=== PATIENT | female | born 1990 | race Caucasian/White ===

== ENCOUNTER 2019-06-13 14:14 | Outpatient (CLI) | payer OTHER | END 2019-06-13 14:15 | disposition home or self-care (01) | LOC: LAB 14:14 | PROVIDERS: ATTEND Obstetrics & Gynecology | DX: Z36.88 Encounter for antenatal screening for fetal macrosomia (principal); O99.89 Other specified diseases and conditions complicating pregnancy, childbirth and the puerperium; E03.9 Hypothyroidism, unspecified | CPT/HCPCS: 36415; 84443 ==

== ENCOUNTER 2019-06-22 14:30 | Outpatient (CLI) | payer OTHER ==
--- NOTE | 2019-06-24 16:02 | Ultrasound Report ---
Reason: SCREENING FOR MACROSOMIA Procedure Date: 06/22/2019 Accession Number: [id number] / [id number] Procedure: US - OB F/U or Repeat CPT Code: Final Report FULL RESULT: EXAM: FOLLOW-UP OBSTETRICAL ULTRASOUND EXAM DATE: 06/22/2019 03:30 PM. CLINICAL HISTORY: macrosomia. COMPARISON: None. TECHNIQUE: Real-time sonographic evaluation of the fetus performed by the white lead grinder. Multiple hotel services sales representative static images were saved for review. DATING: Established EGA 31 weeks 3 days with JORGE A 08/21/2019 based on LMP. EGA 31 weeks 3 days with JORGE A 08/21/2019 based on physician stated. EGA 33 weeks 0 days with JORGE A 08/10/2019 based on the current ultrasound. GENERAL EVALUATION Purcell . Cardiac activity: 143 bpm. movement: Visualized. Presentation: Cephalic. Placenta: Anterior position. Amniotic fluid: Subjectively high ANGELICA 21.6 cm. MVP 6.2 cm. BIOMETRY Bi-Parietal Diameter (BPD): 8.4 cm, 33 weeks 5 days Head Circumference (HC): 30.6 cm, 34 weeks 1 day Abdominal Circumference (AC): 28.8 cm, 32 weeks 6 days Femur Length (FL): 6.0 cm, 31 weeks 1 day Estimated Weight: 1990 g, 74.4 percentile for age. MATERNAL STRUCTURES Cervix measures 3.5 cm by transabdominal technique IMPRESSION: 1. Estimated weight 1990 g, 74.4% percentile. Clinical EDC 08/21/2019. 2. ANEGLICA 21.6 cm. Increased amniotic fluid volume. RADIA
== END 2019-06-22 14:31 | disposition home or self-care (01) ==
LOC: DI 14:30
PROVIDERS: ATTEND Obstetrics & Gynecology
DX: Z36.88 Encounter for antenatal screening for fetal macrosomia (principal)
CPT/HCPCS: 76816

== ENCOUNTER 2019-06-27 08:00 | Outpatient (CLI) | payer OTHER ==
[2019-06-27 17:16] LABS: CREATININE,URINE 23.6 mg/dL; TOTAL PROTEIN,URINE TIMED < 6 mg/dL
== END 2019-06-27 23:59 | disposition home or self-care (01) ==
LOC: LAB.R 08:00
PROVIDERS: ATTEND Obstetrics & Gynecology
DX: O13.3 Gestational [pregnancy-induced] hypertension without significant proteinuria, third trimester (principal)
CPT/HCPCS: 82570; 84156

== ENCOUNTER 2019-07-13 09:32 | Outpatient (CLI) | payer OTHER ==
--- NOTE | 2019-07-15 05:16 | Ultrasound Report ---
Reason: GESTATIONAL DIABETES Procedure Date: 07/13/2019 Accession Number: [id number] / [id number] Procedure: US - OB F/U or Repeat CPT Code: Final Report FULL RESULT: EXAM: FOLLOW-UP OBSTETRICAL ULTRASOUND - LIMITED EXAM DATE: 07/13/2019 10:26 AM. CLINICAL HISTORY: GESTATIONAL DIABETES. COMPARISON: OB F/U OR REPEAT 06/22/2019 3:30 PM. TECHNIQUE: Real-time transabdominal sonographic evaluation of the fetus performed by the social worker delinquency prevention. Multiple agency sales representative static images were saved for review. DATING: Established EGA 34 weeks 3 days with JORGE A 08/21/2019 based on LMP. EGA 35 weeks 2 days with JORGE A 08/15/2019 based on the current ultrasound. GENERAL EVALUATION Purcell . Cardiac activity: 156 bpm. movement: Visualized. Presentation: Cephalic. Placenta: Anterior position. Amniotic fluid: Normal. ANGELICA 20.0 cm. MVP 5.9 cm. BIOMETRY Bi-Parietal Diameter (BPD): 8.9 cm, 36 weeks 0 days Head Circumference (HC): 31.7 cm, 35 weeks 5 days Abdominal Circumference (AC): 32.3 cm, 36 weeks 1 day Femur Length (FL): 6.5 cm, 33 weeks 2 days Estimated Weight: 2269 g, 73.6 percentile for established EGA. ANATOMY Not assessed on limited exam. MATERNAL STRUCTURES Not assessed on limited exam. IMPRESSION: 1. Purcell live intrauterine with gestational age 35 weeks 2 days based on current ultrasound. Expected gestational age is 34 weeks 3 days based on LMP. Established JORGE A is 08/21/2019. 2. Estimated weight is 2269 g, 73.6 percentile. 3. Borderline to mildly increased amniotic fluid volume with ANGELICA of 20 cm, previously 21.6 cm. RADIA
== END 2019-07-13 09:33 | disposition home or self-care (01) ==
LOC: DI 09:32
PROVIDERS: ATTEND Obstetrics & Gynecology
DX: O24.410 Gestational diabetes mellitus in pregnancy, diet controlled (principal); Z3A.35 35 weeks gestation of pregnancy
CPT/HCPCS: 76816

== ENCOUNTER 2019-07-23 07:00 | Outpatient (CLI) | payer OTHER ==
[2019-07-24 21:20] LABS: TRICHOMONAS VAGINALIS DNA NEGATIVE (NEGATIVE)
== END 2019-07-23 23:59 | disposition home or self-care (01) ==
LOC: LAB.R 07:00
PROVIDERS: ATTEND Obstetrics & Gynecology
DX: Z36.85 Encounter for antenatal screening for Streptococcus B (principal)
CPT/HCPCS: 87491; 87591; 87661; 87797

== ENCOUNTER 2019-07-30 11:42 | Outpatient (CLI) | payer OTHER ==
[2019-07-30 12:03] VITALS: BP 133/84
--- NOTE | 2019-08-07 09:42 | PROCEDURE REPORT ---
- HPI Diagnosis/Indication for NST: Gestational Hypertension (Pt also has GDM) Current EDU 08/21/19 Gestation 36 Weeks and 6 Days 1 Para 0 Vital Signs Temperature 36.7 C 07/30/19 11:59 Heart Rate 90 07/30/19 11:59 Respiratory Rate 16 07/30/19 11:59 Blood Pressure 133/84 H 07/30/19 11:59 Temperature 36.7 C 07/30/19 11:59 Heart Rate 90 07/30/19 11:59 Respiratory Rate 16 07/30/19 11:59 Blood Pressure 133/84 H 07/30/19 11:59 O2 Saturation - NST Procedure NST Procedure Start Date 07/30/19 Start Time 11:55 Stop Time 12:20 Vibroacoustic Stimulation Used No Patient States Movement Yes - Results and Plan Findings/Impression: GDM, GHTN Reactive NST. Plan: Continue with twice weekly NST
== END 2019-07-30 12:25 | disposition home or self-care (01) ==
LOC: WFO 11:42 → FBP 11:45 → WFO 12:25
PROVIDERS: ATTEND Obstetrics & Gynecology
DX: O13.3 Gestational [pregnancy-induced] hypertension without significant proteinuria, third trimester (principal); O24.419 Gestational diabetes mellitus in pregnancy, unspecified control; Z3A.36 36 weeks gestation of pregnancy
CPT/HCPCS: 59025

== ENCOUNTER 2019-08-06 10:51 | Outpatient (CLI) | payer OTHER ==
[2019-08-06 11:55] LABS: BASOPHILS # (AUTO) 0.1 10^3/uL (0.0-0.1); BASOPHILS % (AUTO) 0.5 %; HGB - HEMOGLOBIN 13.1 g/dL (12.0-16.0); LYMPHOCYTES % (AUTO) 19.8 %; MEAN CORPUSCULAR HEMOGLOBIN 27.5 pg (27.0-31.0); MEAN CORPUSCULAR HGB CONC 32.8 g/dL (32.0-36.0); MEAN PLATELET VOLUME 10.4 fL (7.9-10.8); MONOCYTES # (AUTO) 0.7 10^3/uL (0.0-1.0); MONOCYTES % (AUTO) 6.9 %; NEUTROPHILS # (AUTO) 7.4 10^3/uL (1.5-6.6); NEUTROPHILS % (AUTO) 72.1 %; PLT - PLATELET COUNT 237 10^3/uL (130-450); RED BLOOD COUNT 4.76 10^6/uL (4.20-5.40); RED CELL DISTRIBUTION WIDTH 14.7 % (12.0-15.0); WHITE BLOOD COUNT 10.2 x10^3/uL (4.8-10.8)
[2019-08-06 12:07] LABS: URIC ACID 4.7 mg/dL (2.6-7.2)
[2019-08-06 12:10] VITALS: BP 133/86
--- NOTE | 2019-08-16 16:22 | PROCEDURE REPORT ---
- HPI Diagnosis/Indication for NST: Gestational Hypertension Current EDU 08/21/19 Gestation 37 Weeks and 6 Days 1 Para 0 Vital Signs Temperature 36.8 C 08/06/19 11:07 Heart Rate 102 H 08/06/19 11:07 Respiratory Rate 18 08/06/19 11:07 Blood Pressure 143/94 H 08/06/19 11:07 O2 Saturation 100 08/06/19 11:07 Temperature 36.8 C 08/06/19 11:07 Heart Rate 102 H 08/06/19 11:07 Respiratory Rate 18 08/06/19 11:07 Blood Pressure 133/86 H 08/06/19 12:09 O2 Saturation 100 08/06/19 11:07 - NST Procedure NST Procedure Start Date 08/06/19 Start Time 10:59 Stop Time 11:30 Vibroacoustic Stimulation Used No Patient States Movement Yes - Results and Plan Findings/Impression: reactive NST Plan: continue NST and Bp monitoring
== END 2019-08-06 12:24 | disposition home or self-care (01) ==
LOC: WFO 10:51 → FBP 10:59 → WFO 12:24
PROVIDERS: ATTEND Obstetrics & Gynecology
DX: O13.3 Gestational [pregnancy-induced] hypertension without significant proteinuria, third trimester (principal); Z3A.37 37 weeks gestation of pregnancy
CPT/HCPCS: 36415; 59025; 83615; 84450; 84550; 85025

== ENCOUNTER 2019-08-13 12:24 | Outpatient (CLI) | payer OTHER ==
[2019-08-13 12:44] VITALS: BP 132/85
--- NOTE | 2019-08-23 11:08 | PROCEDURE REPORT ---
- HPI Diagnosis/Indication for NST: Gestational Hypertension Current EDU 08/21/19 Gestation 38 Weeks and 6 Days 1 Para 0 Vital Signs Temperature 36.8 C 08/13/19 12:38 Heart Rate 87 08/13/19 12:38 Respiratory Rate 16 08/13/19 12:38 Blood Pressure 132/85 H 08/13/19 12:38 Temperature 36.8 C 08/13/19 12:38 Heart Rate 87 08/13/19 12:38 Respiratory Rate 16 08/13/19 12:38 Blood Pressure 132/85 H 08/13/19 12:38 O2 Saturation - NST Procedure NST Procedure Start Date 08/13/19 Start Time 12:38 Stop Time 13:00 Vibroacoustic Stimulation Used No Patient States Movement Yes - Results and Plan Findings/Impression: 38 weeks GHTN reactive NST Plan: induction @ 39 weeks
== END 2019-08-13 13:00 | disposition home or self-care (01) ==
LOC: WFO 12:24 → FBP 12:28 → WFO 13:00
PROVIDERS: ATTEND Obstetrics & Gynecology
DX: O13.3 Gestational [pregnancy-induced] hypertension without significant proteinuria, third trimester (principal); Z3A.38 38 weeks gestation of pregnancy
CPT/HCPCS: 59025

== ENCOUNTER 2019-08-14 16:45 | Inpatient (IN) | payer OTHER ==
[2019-08-14] MEDS ORDERED: LABETALOL 20 MG/4 ML SYRINGE IV PRN (17:48)
[2019-08-14] MEDS ORDERED: SODIUM CHLORIDE FLUSH 0.9% 10 ML SYRINGE IVP PRN (17:48)
[2019-08-14] MEDS ORDERED: OXYTOCIN/SODIUM CHLORIDE 500 ML IV PRN (17:48)
[2019-08-14 18:05] LABS: BASOPHILS % (AUTO) 0.4 %; HGB - HEMOGLOBIN 12.5 g/dL (12.0-16.0); LYMPHOCYTES # (AUTO) 2.2 10^3/uL (1.5-3.5); LYMPHOCYTES % (AUTO) 22.9 %; MEAN CORPUSCULAR HEMOGLOBIN 27.5 pg (27.0-31.0); MEAN CORPUSCULAR HGB CONC 32.7 g/dL (32.0-36.0); MEAN CORPUSCULAR VOLUME 84.1 fL (81.0-99.0); MEAN PLATELET VOLUME 10.8 fL (7.9-10.8); MONOCYTES # (AUTO) 0.7 10^3/uL (0.0-1.0); MONOCYTES % (AUTO) 7.4 %; NEUTROPHILS # (AUTO) 6.7 10^3/uL (1.5-6.6); NEUTROPHILS % (AUTO) 68.5 %; PLT - PLATELET COUNT 236 10^3/uL (130-450); RED BLOOD COUNT 4.54 10^6/uL (4.20-5.40); RED CELL DISTRIBUTION WIDTH 15.1 % (12.0-15.0); WHITE BLOOD COUNT 9.8 x10^3/uL (4.8-10.8)
[2019-08-14] MEDS: miSOPROStoL 100 MCG TABLET BC SCH ×2 (18:11→22:13)
[2019-08-14] MEDS ORDERED: miSOPROStoL 200 MCG TABLET PR PRN (18:30)
[2019-08-14 19:39] LABS: CREATININE,URINE 208.8 mg/dL; PROTEIN/CREATININE RATIO,URINE 0.2 (<=0.2)
--- NOTE | 2019-08-15 00:05 | HISTORY & PHYSICAL EXAMINATION ---
Admit History - Visit Reason Visit Reason: Other - : 1 Parity: 0 Premature: 0 Ectopic: 0 : 0 Care: positive: [facility] Complications This : positive: None, Gestational diabetes, Other (Chronic hypertension) Smoking Status: Never smoker - Mother's Labs Mother's Blood Type: positive: A Mother's RH: positive: Positive GBS: positive: Group B Step Negative Rubella Status: positive: Immune Meds/Allgy - Allergies Allergies/Adverse Reactions: Allergies Allergy/AdvReac Type Severity Reaction Status Date / Time No Known Drug Allergies Allergy Verified 08/14/19 17:01 Review of Systems - Constitutional Constitutional: denies: Fatigue, Fever, Chills, Diaphoresis - Eyes Eyes: denies: Pain, Blurred vision, Spots in vision, Vision loss - Ears, Nose & Throat Ears, Nose & Throat: denies: Ear pain, Tinnitus, Nasal obstruction, Nasal congestion, Sore throat - Cardiovascular Cariovascular: denies: Irregular heart rate, Chest pain, Lightheadedness, Syncope - Respiratory Respiratory: denies: Cough, Wheezing, SOB at rest, SOB with exertion - Gastrointestinal Gastrointestinal: denies: Abdominal pain, Constipation, Nausea, Vomiting - Genitourinary Genitourinary: denies: Dysuria, Frequency, Urgency - Musculoskeletal Musculoskeletal: denies: Muscle pain - Integumentary Integumentary: denies: Rash, Pruritis - Neurological Neurological: denies: General weakness, Numbness - Psychiatric Psychiatric: denies: Depression, Anxiety - Hematologic/Lymphatic Hematologic/Lymphatic: denies: Anemia, Bruising - All Other Systems All Other Systems: denies: Reviewed and negative Physical - Abdominal Exam Contraction Frequency (min/apart): 6-8 Contraction Intensity: positive: Mild Uterine Resting Tone: positive: Soft - Monitoring Heart Rate Baseline: 135 Strip Review: positive: Category I - Presentation Presentation: positive: Vertex (Vertex confirmed by BSUS) - Vaginal Exam Membranes: positive: Membranes intact - Other Notes Labor Progress Note/Additional Text: Jillian is a 27year old who presents at 39.0wks gestation. She received adequate care at the [facility] before transferring to [facility]. was complicated by diet controlled GDM and chronic hypertension that was controlled without medications in . Admitted to Observation status for pre-induction cervical ripening. Dating: EDC 08/21/2019 by LMP and confirmed by 19.6wk ultrasound OB Hx G1: Current Medications: Aspirin 81mg QD PNV Levothyroxine 125mcg PO Allergies: NKDA Medical History: Anemia Hypothyroidism Hypertension Surgical History: Flexor tendon repair 2017 Family History: Not applicable Social History: Never smoker, no ETOH Labs: A pos GBS Neg Rubella immune Glucola; 156, three hour was 180/152/142 Immunizations: Tdap Physical Exam: as above Assessment: Pt is a 28yo who was admitted to OBS 08/14/2019 at 39.0wks gestation for a pre-labor cervical ripening. complicated by hypertension and gestational diabets. Protein/Createnine ratio 0.2 on admit, other PIH panel also wnl Cat I FHT Cervical ripening indicated Plan: Admit to OBS (until AROM/SROM, active labor, pitocin, or epidural) Continuous monitoring May have epidural when desired (Nitrous gas not being utilized at this time r/t pandemic) May eat/drink/ambulate to comfort Anticipate Plan for Labor - Plan For Labor I expect patient to be DC'd or transferred within 96 hours.: Yes
[2019-08-15] MEDS ORDERED: SODIUM CHLORIDE FLUSH 0.9% 10 ML SYRINGE IVP SCH (01:00)
[2019-08-15] MEDS: miSOPROStoL 100 MCG TABLET BC SCH ×2 (02:16→06:46)
[2019-08-15] MEDS: LEVOTHYROXINE 125 MCG TABLET PO SCH (06:46)
[2019-08-15] MEDS ORDERED: fentaNYL 100 MCG/2 ML VIAL IVP PRN (07:48)
[2019-08-15] MEDS: LACTATED RINGERS 1,000 ML IV SCH ×2 (08:18→11:49)
[2019-08-15] MEDS ORDERED: ROPIVACAINE 0.2% 200 MG/100 ML BAG EP ONE (09:17)
--- NOTE | 2019-08-15 09:21 | ANESTHESIA ---
Pre-Anesthesia VS, & Labs - Diagnosis active labor - Procedure vaginal delivery Height 5 ft 8 in Weight (kg) 98.883 kg - NPO Other (clear liquids) - Is Patient ?: Yes - Lab Results Current Lab Results: Laboratory Tests 08/14/19 17:53: AST 22 08/14/19 17:53: Lactate Dehydrogenase 114 08/14/19 17:53: WBC 9.8, RBC 4.54, Hgb 12.5, Hct 38.2, MCV 84.1, MCH 27.5, MCHC 32.7, RDW 15.1 H, Plt Count 236, MPV 10.8, Neut # (Auto) 6.7 H, Lymph # (Auto) 2.2, Story # (Auto) 0.7, Eos # (Auto) 0.0, Baso # (Auto) 0.0, Absolute Nucleated RBC 0.00, Nucleated RBC % 0.0 Fish Bones: 08/14/19 17:53 Home Medications and Allergies Active Medications Fentanyl (Fentanyl) 50 - 100 mcg IVP Q1HR PRN PRN Reason: PAIN Last Admin: 08/15/19 09:02 Dose: 50 mcg Lactated Ringer's (Lr) 1,000 mls @ 100 mls/hr IV .Q10H [facility] Last Admin: 08/15/19 08:18 Dose: 999 mls/hr Oxytocin/Sodium Chloride (Pitocin/Sodium Chloride) 500 mls @ 999 mls/hr IV PRN PRN; Protocol PRN Reason: POST- HEMORR PREVENTION Labetalol HCl (Trandate Syringe) 10 mg IV Q10M PRN PRN Reason: SBP > 160 or DBP > 110 Levothyroxine Sodium (Synthroid) 125 mcg PO QDAC [facility] Last Admin: 08/15/19 06:46 Dose: 125 mcg Misoprostol (Cytotec) 50 mcg BC Q4H [facility] Last Admin: 08/15/19 06:46 Dose: 50 mcg Misoprostol (Cytotec) 600 mcg TX ONCE PRN PRN Reason: POST- HEMORRHAGE Stop: 08/16/19 18:29 Sodium Chloride (Normal Saline Flush 0.9%) 10 ml IVP 0100,0900,1700 [facility] Sodium Chloride (Normal Saline Flush 0.9%) 10 ml IVP PRN PRN PRN Reason: NEEDED PER PROVIDER ORDERS PNV, Baby ASA Allergies/Adverse Reactions: Allergies Allergy/AdvReac Type Severity Reaction Status Date / Time No Known Drug Allergies Allergy Verified 08/14/19 17:01 Anes History & Medical History - Anesthetic History Anesthesia Complications: reports: No previous complications - Medical History Cardiovascular: reports: Hypertension (chronic hypertension) Pulmonary: reports: None Gastrointestinal: reports: None Urinary: reports: None Neuro: reports: None Musculoskeletal: reports: None Endocrine/Autoimmune: reports: Other (diet controlled gestational diabetes) Blood Disorders: reports: None Smoking Status: Never smoker Psychosocial: reports: No issues indicated - Surgical History Orthopedic: Other (left hand surgery) - Obstetrical History : 1 Parity: 0 Complications: positive: None, Gestational diabetes, Other (Chronic hypertension) Exam General: Alert, Oriented x3, Cooperative, No acute distress Dental: WNL Mouth Openin Fingerbreadth Neck Mobility: Normal Mallampati classification: II Thyromental Distance: greater than 6 cm Mental/Cognitive Status: Alert/Oriented X3, Normal for patient Plan Anesthesia Type: Epidural Consent for Procedure(s) Verified and Reviewed: Yes Code Status: Attempt Resuscitation ASA classification: 2-Mild systemic disease Is this case an emergency?: No
[2019-08-15] MEDS ORDERED: ONDANSETRON 4 MG/2 ML VIAL IVP PRN (09:49)
[2019-08-15] MEDS ORDERED: NALBUPHINE 10 MG/ML AMP IVP PRN (09:49)
[2019-08-15] MEDS ORDERED: ROPIVACAINE 0.2% 200 MG/100 ML BAG EP PRN (09:49)
[2019-08-15] MEDS ORDERED: ePHEDrine 50 MG/ML VIAL IVP PRN (09:49)
[2019-08-15] MEDS ORDERED: NALOXONE 0.4 MG/ML VIAL IVP PRN (09:49)
--- NOTE | 2019-08-15 15:02 | PROVIDER PROGRESS NOTE ---
Subjective - Prog Note Date Prog Note Date: 08/15/19 Prog Note Time: 14:59 - Subjective Subjective: LATE ENTRY: called to patient bedside to assess monitoting. tracing showed intermittent periods of minimal variability with intermittent decels. She had received 2 doses of misoprostol and then had spontaneous rupture of membranes. She had progressed rapidly from 2 cm to 7 cm in less than 2 hours. Rec'd fentanyl 50 mcg x1 prior to undergoing placement of epidural. Prior to receiving fentanyl, EFM showed moderate variabilty. SVE at approx 2:30 showed patient to be complete/complete/+1 station. Will proceed with pushing. 140 mild/mod variabiility intermittent decels TOCO: Q2-3 min CAT II tracing Proceed with pushing Anticipate Objective - Vital Signs/Intake & Output Intake & Output: Intake & Output 08/12/19 08/13/19 08/14/19 08/15/19 23:59 23:59 23:59 23:59 Intake Total 1250 Output Total 175 Balance 1075 - Lab Results Fish Bones: 08/14/19 17:53 Other Labs: Lab Results x24hrs 08/14/19 08/14/19 08/14/19 Range/Units 19:00 17:53 17:53 WBC (4.8-10.8) x10^3/uL RBC (4.20-5.40) 10^6/uL Hgb (12.0-16.0) g/dL Hct (37.0-47.0) % MCV (81.0-99.0) fL MCH (27.0-31.0) pg MCHC (32.0-36.0) g/dL RDW (12.0-15.0) % Plt Count (130-450) 10^3/uL MPV (7.9-10.8) fL Neut # (Auto) (1.5-6.6) 10^3/uL Lymph # (Auto) (1.5-3.5) 10^3/uL [place] # (Auto) (0.0-1.0) 10^3/uL Eos # (Auto) (0.0-0.7) 10^3/uL Baso # (Auto) (0.0-0.1) 10^3/uL Absolute Nucleated RBC x10^3/uL Nucleated RBC % /100WBC AST 22 (10-42) IU/L Lactate Dehydrogenase 114 (91-225) IU/L Urine Creatinine 208.8 mg/dL Ur Total Protein Timed 38 mg/dL Protein/Creatinin Ratio 0.2 (<=0.2) 08/14/19 Range/Units 17:53 WBC 9.8 (4.8-10.8) x10^3/uL RBC 4.54 (4.20-5.40) 10^6/uL Hgb 12.5 (12.0-16.0) g/dL Hct 38.2 (37.0-47.0) % MCV 84.1 (81.0-99.0) fL MCH 27.5 (27.0-31.0) pg MCHC 32.7 (32.0-36.0) g/dL RDW 15.1 H (12.0-15.0) % Plt Count 236 (130-450) 10^3/uL MPV 10.8 (7.9-10.8) fL Neut # (Auto) 6.7 H (1.5-6.6) 10^3/uL Lymph # (Auto) 2.2 (1.5-3.5) 10^3/uL [place] # (Auto) 0.7 (0.0-1.0) 10^3/uL Eos # (Auto) 0.0 (0.0-0.7) 10^3/uL Baso # (Auto) 0.0 (0.0-0.1) 10^3/uL Absolute Nucleated RBC 0.00 x10^3/uL Nucleated RBC % 0.0 /100WBC AST (10-42) IU/L Lactate Dehydrogenase (91-225) IU/L Urine Creatinine mg/dL Ur Total Protein Timed mg/dL Protein/Creatinin Ratio (<=0.2)
[2019-08-15] MEDS ORDERED: SIMETHICONE CHEW 80 MG TABLET PO PRN (17:37)
[2019-08-15] MEDS ORDERED: ONDANSETRON ODT 4 MG TABLET TL PRN (17:37)
--- NOTE | 2019-08-15 17:46 | DELIVERY NOTE ---
Delivery Note - Labor Labor: positive: Other (Induced with misoprostol) - Delivery Method Infant Delivery Method: positive: Spontaneous vaginal delivery - Cervical Ripening Method Cervical Ripening Method: positive: Misoprostil - Presentation Presentation: positive: Vertex - Nuchal Cord Nuchal Cord: positive: None - Anesthetic Anesthetic Type: - Amniotic Fluid Description Amniotic Fluid Description: positive: Clear - Episiotomy Type Episiotomy Type: positive: None - Laceration Laceration: positive: 1st degree, Sulcus - Suture Suture Type: positive: Vicryl Suture Size: positive: 3-0 - Delivery Outcome Delivery Outcome: positive: Livebirth - : positive: Placed in direct skin contact with mother, Stimulated, Warmed, [place] used [place] sex: positive: Female - Cord Cord: positive: 3 vessels - Placenta Placenta: positive: Expressed, Other - Estimated Blood Loss Estimated Blood Loss (in cc): 200 - Post Delivery Events Post Delivery Events: positive: No post delivery events - Delivery Comments (Free Text/Narrative) Delivery Comments (Free Text/Narrative): STAGE I: Patient is a 28 yo admitted at 39+0 wga for induction of labor for A1DM and chronic hypertension. Initial SVE was closed/long/high. She received two doses of misoprostol and then had spontaneous rupture of membranes. She had progressed rapidly from 2 cm to 7 cm in less than 2 hours. Received Fentanyl 50 mcg x1 prior to undergoing placement of epidural. Prior to receiving fentanyl, EFM showed moderate variability. GBS negative. Category I tracing with periods of Category II. She progressed rapidly from 2 cm dilation to 7 cm in less than 2 hours. SVE at approx 14:26 showed patient to be complete/complete/+1 station. STAGE II: Patient pushed well for 45 minutes to delivery a viable female at 16:26 am. delivered from direct OA, and was rotated to LOP with right shoulder anterior. Short shoulder dystocia of 60 seconds relieved with Heather and rotational maneuvers. was delivered to mothers abdomen and was vigours after brief period of stimulation. Cord was clamped x2 and cut after pulsations had ceased. Weight and Apgars pending. Collision Estimator was in the room and examined baby at bedside. STAGE III: Placenta delivered with gentle downward traction on the umbilical cord and manual expression at 16:32. It was examined and a small cotyledon appeared to be missing. It was delivered encased in membranes. When the amniotic sac was inverted to examined the placenta, a discreet piece of placental tissue corresponding to the size of the cotyledon was noted. bleeding was wnl. Total EBL 200 cc. The perineum was examined and a 1st degree sulcal tear at that left aspect of the vaginal floor was noted. It was closed with 2 figure of 8 sutures using 3-0 Vicryl. Good hemostasis was noted.
[2019-08-15] MEDS ORDERED: LACTATED RINGERS 1,000 ML IV SCH (18:00)
[2019-08-15] MEDS: IBUPROFEN 600 MG TABLET PO SCH (18:52)
[2019-08-15] MEDS: DOCUSATE SODIUM 100 MG CAPSULE PO PRN (18:52)
[2019-08-15] MEDS: ACETAMINOPHEN 500 MG TABLET PO SCH (18:53)
[2019-08-16] MEDS: IBUPROFEN 600 MG TABLET PO SCH ×4 (02:17→20:38)
[2019-08-16] MEDS: ACETAMINOPHEN 500 MG TABLET PO SCH ×3 (06:39→23:11)
[2019-08-16] MEDS: LEVOTHYROXINE 125 MCG TABLET PO SCH (06:39)
[2019-08-16] MEDS: DOCUSATE SODIUM 100 MG CAPSULE PO PRN ×2 (09:13→20:38)
--- NOTE | 2019-08-16 11:31 | PROVIDER PROGRESS NOTE ---
Subjective - Prog Note Date Prog Note Date: 08/16/19 Prog Note Time: 11:29 - Subjective Pt reports feeling: Improved Subjective: Pain /. breast feeding Objective - Vital Signs/Intake & Output Reviewed Vital Signs: Yes Vital Signs: Vital Signs x48h Temp Pulse Resp BP Pulse Ox 08/16/19 08:29 36.7 C 88 18 113/69 96 08/16/19 05:30 91 18 138/90 H 98 Intake & Output: Intake & Output 08/13/19 08/14/19 08/15/19 08/16/19 23:59 23:59 23:59 23:59 Intake Total 1250 100 Output Total 435 Balance 815 100 - Objective General Appearance: positive: No acute distress, Alert Abdomen: positive: Non-tender, Mass (at U) Extremities: positive: Pedal edema (+2). negative: Calf tenderness, Bria's sign/cords Neurologic/Psychiatric: positive: Oriented x3 - Lab Results Fish Bones: 08/14/19 17:53 Assessment/Plan - Problem List (1) (spontaneous vaginal delivery) Impression: Progressing well
[2019-08-17] MEDS: IBUPROFEN 600 MG TABLET PO SCH ×2 (03:12→09:45)
[2019-08-17] MEDS: LEVOTHYROXINE 125 MCG TABLET PO SCH (07:18)
[2019-08-17] MEDS: DOCUSATE SODIUM 100 MG CAPSULE PO PRN (07:57)
[2019-08-17] MEDS: ACETAMINOPHEN 500 MG TABLET PO SCH (07:57)
[2019-08-17 09:40] VITALS: BP 123/85
--- NOTE | 2019-08-17 13:46 | Discharge Plan ---
Discharge Plan Problem Reviewed?: Yes Disposition: 01 Home, Self Care Condition: Good Diet: Regular Activity Restrictions: Additional Comments (Nothing in the vagina for 6 weeks: No intercourse, tampons, douching Call for: -Fever greater than 100.5 - Pain that does not improve with pain medication -Heavy bleeding in which you are soaking a pad an hour for 2 hours in a row) Shower Restrictions: No (No hot tubs or baths for 4 weeks) Driving Restrictions: No Additional Instructions or Follow Up instructions: Follow-up in 6 weeks; possibly via telemedicine No Smoking: If you smoke, Please STOP! Call for help. Follow-up with: Rosalba Sylvester MD [Provider Admit Priv/Credential] - ROSALBA SYLVESTER MD, PHD [Physician No Access] -
--- NOTE | 2019-08-17 13:46 | DISCHARGE SUMMARY ---
"Discharge Summary Admit Date: 08/15/19 Discharge Date: 08/17/19 Discharging Provider: Higinio Condition at Discharge: Good Discharge Disposition: 01 Home, Self Care Discharge Facility Name: [facility] - DIAGNOSES Admission Diagnoses: IUP at A1DM Chronic hypertension Discharge Diagnoses with Status of Each Condition: Same and delivery of term gestation - HPI History of Present Illness: Patient is a 28 yo admitted at 39+0 wga for induction of labor for A1DM and chronic hypertension. Initial SVE was closed/long/high. - CONSULTS | PROCEDURES Procedures: Spontaneous vaginal delivery - HOSPITAL COURSE Hospital Course: STAGE I: Patient is a 28 yo admitted at 39+0 wga for induction of labor for A1DM and chronic hypertension. Initial SVE was closed/long/high. She received two doses of misoprostol and then had spontaneous rupture of membranes. She had progressed rapidly from 2 cm to 7 cm in less than 2 hours. Received Fentanyl 50 mcg x1 prior to undergoing placement of epidural. Prior to receiving fentanyl, EFM showed moderate variability. GBS negative. Category I tracing with periods of Category II. She progressed rapidly from 2 cm dilation to 7 cm in less than 2 hours. SVE at approx 14:26 showed patient to be complete/complete/+1 station. STAGE II: Patient pushed well for 45 minutes to delivery a viable female at 16:26 am. delivered from direct OA, and was rotated to LOP with right shoulder anterior. Short shoulder dystocia of 60 seconds relieved with Heather and rotational maneuvers. Infant was delivered to mothers abdomen and was vigours after brief period of stimulation. Cord was clamped x2 and cut after pulsations had ceased. Weight and Apgars pending. Cotton Inspector was in the room and examined baby at bedside. STAGE III: Placenta delivered with gentle downward traction on the umbilical cord and manual expression at 16:32. It was examined and a small cotyledon appe ared to be missing. It was delivered encased in membranes. When the amniotic sac was inverted to examined the placenta, a discreet piece of placental tissue corresponding to the size of the cotyledon was noted. bleeding was wnl. Total EBL 200 cc. The perineum was examined and a 1st degree sulcal tear at that left aspect of the vaginal floor was noted. It was closed with 2 figure of 8 sutures using 3-0 Vicryl. Good hemostasis was noted. Post course was uncomplicated. By PPD#2, she was meeting goals for discharged and discharged home with routine DC instructions. Rh positive and Rubella immune - ALLERGIES Allergies/Adverse Reactions: Allergies Allergy/AdvReac Type Severity Reaction Status Date / Time No Known Drug Allergies Allergy Verified 08/14/19 17:01 - MEDICATIONS Home Medications Other | Comments: Ibuprofen 600 mg by mouth every 6 hours as needed for pain Acetaminophen 500-1000 mg by mouth every 8 hours as needed for pain Docusate 100-200 mg by mouth twice a day as needed for constipation - LABS Result Diagrams: 08/14/19 17:53 - FOLLOW UP Follow Up: 6 weeks - TIME SPENT Time Spent in Discharge (Minutes): 30"
--- NOTE | 2019-08-17 15:06 | Labor Flowsheet ---
Labor Flowsheet Datetime Report Generated by CPN: 08/17/2019 15:06 Datetime: 08/17/2019 09:30 VITAL SIGNS NBP Sys/María/Mean (mmHg): 123 : 85 : 94 Pulse: 97 SpO2 (%): 98 Datetime: 08/15/2019 16:45 PAIN Pain Scale: 3 Pain Presence: Intermittent Pain Type: Cramping Pain Location: Abdomen Datetime: 08/15/2019 16:35 Temperature (C): 37.5 Datetime: 08/15/2019 16:26 Stage of : Recovery ASSESSMENT A Monitor Mode: External US FHR Baseline Rate : 140 Variability: Moderate 6-25 bpm Accelerations: None Decelerations: Late; Variable Category: Category II Oxygen Method: Room Air STAGE 2 Pushing: Coached on Pushing; Urge to Push Pushing Position: Pushing with Contractions Pushing Progress: with Pushing; Pushing Effectively with Contractions Datetime: 08/15/2019 16:25 LaborFlag: Antepartum Datetime: 08/15/2019 16:20 UTERINE ACTIVITY Monitor Mode: External Frequency (min): 1.5-3 Quality: Strong Duration (sec): 60-80 Pattern: Normal: <= 5 Contractions in 10 Minutes Resting Tone (Palpate): Relaxed Datetime: 08/15/2019 15:50 MEDICATIONS Pitocin (milliunits): Increased to @ 2 Medication Comments: per MD Datetime: 08/15/2019 15:19 Actions for Decelerations: Provider Notified Datetime: 08/15/2019 15:15 Comments: deceleration with pushing effort Datetime: 08/15/2019 15:12 COMMUNICATION Communication: Provider at Bedside Provider Notified (Name): Communication Comments: at bedside per MD start pitocin at 1 Datetime: 08/15/2019 15:00 Monitor Interventions for UA: [place] Adjusted Monitor Interventions for FHR: Ultrasound Adjusted Datetime: 08/15/2019 14:45 Patient Care Comments: wrigth balloon deflated Datetime: 08/15/2019 14:26 VAGINAL EXAM Dilatation (cm): 10.0 Effacement (%): 100 Station: 0 Exam by: Kiara RN Datetime: 08/15/2019 14:12 Pain Relief Measures: Comfort Measures Pain Coping: Talking Through Contractions Patient Position/Activity: Right Lateral Datetime: 08/15/2019 14:06 Respirations: 20 Datetime: 08/15/2019 13:15 Contraction Comments: coupling contractions Hygiene: Deann Care Datetime: 08/15/2019 13:09 Anesthesia Level Check: T11 Datetime: 08/15/2019 12:13 I/O Interventions: Clear Liquids Given Datetime: 08/15/2019 11:30 Pain Assessment Comments: L groin Comfort Measures: Breathing/Relaxation Datetime: 08/15/2019 11:15 Cervix, Consistency: Soft Datetime: 08/15/2019 10:00 TEACHING Instructional Method: Verbal; Patient Instructed; Family/Support Person Instructed Plan of Care: Plan of Care Discussed; Labor; Induction Unit Routine: Call Garcia; Bed; Unit Personnel; Monitoring; IV Pumps; Safety/Fall Risk Preventi on Labor/Induction: Labor Stages; Cervical Ripening; Induction; Interventions; Activity Pain Management: Epidural Datetime: 08/15/2019 09:39 Epidural Procedure Other: Pump Started Datetime: 08/15/2019 09:31 Epidural Procedure: Test Dose Datetime: 08/15/2019 09:28 Anesthesia Comments: local Datetime: 08/15/2019 09:24 PROCEDURE TIME OUT Procedure Verify: Correct Patient Identity; Correct Side and Site are Marked; Accurate Procedure Co nsent Form; Agreement on Procedure to be Done; Correct Patient Position; Relevant Images and Results are Properly Labeled and Displayed ANESTHESIA Anesthesia Plans: Epidural Epidural Positioning: Sitting Datetime: 08/15/2019 09:01 Analgesics/Sedatives: Fentanyl (mcg) @ 50 Datetime: 08/15/2019 08:16 Temperature Route: Oral Datetime: 08/15/2019 08:15 Vaginal Bleeding: None Cervix, Position: Midposition Datetime: 08/15/2019 08:10 PATIENT CARE IV/Blood Work: IV Bolus Given ml @ 999 Datetime: 08/15/2019 08:02 Notification Reason: Status; Labor Status; Uterine Activity; Pain Datetime: 08/15/2019 06:45 Cervical Ripening Agents: Cytotec @ 50 Datetime: 08/15/2019 04:50 Membrane Status: Ruptured Membranes Rupture Method: Spontaneous Amniotic Fluid Color: Clear Amniotic Fluid Amount: Large Amniotic Fluid Odor: Normal Datetime: 08/15/2019 04:00 FHR Baseline Changes: No Baseline Change Datetime: 08/15/2019 02:20 MATERNAL ASSESSMENT Level of Consciousness: Alert Headache: Denies Breath Sounds, Left: Clear and Equal Breath Sounds, Right: Clear and Equal Nausea/Vomiting: Denies RUQ Epigastric Pain: Denies Medications: Cervical Ripening
== END 2019-08-17 14:30 | disposition home or self-care (01) | DRG 806 ==
LOC: FBP 16:45 → WFO 16:45 → FBP 17:48 → OBSVTOIN 08-15 05:58
PROVIDERS: ADMIT Advanced Practice Midwife; ATTEND Obstetrics & Gynecology
PROC: 10E0XZZ Delivery of Products of Conception, External Approach (ICD-10-PCS; principal; 2019-08-15)
PROC: 0HQ9XZZ Repair Perineum Skin, External Approach (ICD-10-PCS; 2019-08-15)
DX: O24.420 Gestational diabetes mellitus in childbirth, diet controlled (principal); O10.02 Pre-existing essential hypertension complicating childbirth; Z37.0 Single live birth; O99.284 Endocrine, nutritional and metabolic diseases complicating childbirth; E03.9 Hypothyroidism, unspecified; O70.0 First degree perineal laceration during delivery; O66.0 Obstructed labor due to shoulder dystocia; O43.893 Other placental disorders, third trimester; Z3A.39 39 weeks gestation of pregnancy; Z79.82 Long term (current) use of aspirin
CPT/HCPCS: 82570; 83615; 84156; 84450; 85025; A9270; J7120

== ENCOUNTER 2019-10-10 08:45 | Outpatient (CLI) | payer OTHER ==
[2019-10-10 09:46] LABS: THYROID STIMULATING HORMONE 0.36 uIU/mL (0.34-5.60)
[2019-10-10 09:48] LABS: FREE T4 (FREE THYROXINE) 0.86 ng/dL (0.58-1.64)
== END 2019-10-10 08:46 | disposition home or self-care (01) ==
LOC: LAB 08:45
PROVIDERS: ATTEND Obstetrics & Gynecology
DX: O99.280 Endocrine, nutritional and metabolic diseases complicating pregnancy, unspecified trimester (principal); O24.410 Gestational diabetes mellitus in pregnancy, diet controlled; Z3A.00 Weeks of gestation of pregnancy not specified
CPT/HCPCS: 36415; 82950; 82951; 84439; 84443

== ENCOUNTER 2020-05-07 08:00 | Outpatient (CLI) | payer OTHER | END 2020-05-07 23:59 | LOC: LAB.R 08:00 | PROVIDERS: ATTEND Family Medicine | DX: R05 Cough (principal); Z20.828 Contact with and (suspected) exposure to other viral communicable diseases | CPT/HCPCS: 87275; 87276 ==

== ENCOUNTER 2023-11-22 08:00 | Outpatient (CLI) | payer OTHER | END 2023-11-22 23:59 | disposition home or self-care (01) | LOC: LAB.N 08:00 | PROVIDERS: ATTEND Physician Assistant | DX: R30.0 Dysuria (principal) | CPT/HCPCS: 87077; 87086; 87181 ==

== ENCOUNTER 2023-12-15 08:00 | Outpatient (CLI) | payer OTHER ==
[2023-12-15 11:58] LABS: BASOPHILS # (AUTO) 0.1 10^3/uL (0.0-0.1); BASOPHILS % (AUTO) 1.1 %; HGB - HEMOGLOBIN 12.8 g/dL (12.0-16.0); LYMPHOCYTES # (AUTO) 2.6 10^3/uL (1.5-3.5); LYMPHOCYTES % (AUTO) 48.5 %; MEAN CORPUSCULAR HEMOGLOBIN 26.7 pg (27.0-31.0); MEAN CORPUSCULAR HGB CONC 31.2 g/dL (32.0-36.0); MEAN CORPUSCULAR VOLUME 85.4 fL (81.0-99.0); MEAN PLATELET VOLUME 10.1 fL (7.9-10.8); MONOCYTES # (AUTO) 0.3 10^3/uL (0.0-1.0); MONOCYTES % (AUTO) 5.3 %; NEUTROPHILS # (AUTO) 2.4 10^3/uL (1.5-6.6); NEUTROPHILS % (AUTO) 44.9 %; PLT - PLATELET COUNT 239 10^3/uL (130-450); RED CELL DISTRIBUTION WIDTH 13.2 % (12.0-15.0); WHITE BLOOD COUNT 5.3 x10^3/uL (4.8-10.8)
[2023-12-15 12:12] LABS: ALBUMIN 4.9 g/dL (3.2-5.5); BILIRUBIN,TOTAL 0.5 mg/dL (0.2-1.0); CALCIUM 9.8 mg/dL (8.5-10.3); CREATININE 0.7 mg/dL (0.6-1.3); POTASSIUM 4.4 mmol/L (3.5-4.5); TOTAL PROTEIN 7.4 g/dL (6.4-8.9)
[2023-12-15 12:26] LABS: THYROID STIMULATING HORMONE 4.55 uIU/mL (0.34-5.60)
[2023-12-15 12:48] LABS: ESTIMATED AVERAGE GLUCOSE 105 mg/dL (70-100); HEMOGLOBIN A1c% 5.3 % (4.27-6.07)
== END 2023-12-15 23:59 | disposition home or self-care (01) ==
LOC: LAB.N 08:00
PROVIDERS: ATTEND Nurse Practitioner Family
DX: I10 Essential (primary) hypertension (principal); E03.9 Hypothyroidism, unspecified; Z86.32 Personal history of gestational diabetes
CPT/HCPCS: 36415; 80053; 83036; 84439; 84443; 84481; 85025

== ENCOUNTER 2024-09-10 07:50 | Inpatient (IN) ==
[2024-09-10] MEDS ORDERED: lidocaine 1% 20 ML MDV ID PRN (08:13)
[2024-09-10] MEDS ORDERED: NIFEdipine 10 MG CAPSULE PO PRN (08:13)
[2024-09-10] MEDS ORDERED: LACTATED RINGERS 1,000 ML IV PRN (08:13)
[2024-09-10] MEDS ORDERED: OXYTOCIN 10 UNIT/ML VIAL IM PRN (08:13)
[2024-09-10] MEDS ORDERED: CARBOPROST TROMETHAMINE 250 MCG/ML VIAL IM PRN (08:13)
[2024-09-10] MEDS ORDERED: LABETALOL 20 MG/4 ML SYRINGE IVP PRN ×3 (08:13)
[2024-09-10] MEDS ORDERED: SODIUM CHLORIDE FLUSH 0.9% 10 ML SYRINGE IVP PRN (08:13)
[2024-09-10] MEDS ORDERED: miSOPROStoL 200 MCG TABLET BC PRN (08:13)
[2024-09-10] MEDS ORDERED: TRANEXAMIC ACID IN NACL 1,000 MG/100 ML BAG IV PRN (08:13)
[2024-09-10] MEDS ORDERED: hydrALAZINE INJ 20 MG/ML VIAL IVP PRN ×2 (08:13)
[2024-09-10] MEDS ORDERED: OXYTOCIN/SODIUM CHLORIDE 500 ML IV PRN ×2 (08:13→23:05)
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
--- OUTSIDE RECORDS SUMMARY | 2024-09-10 08:29 | EXTERNAL MEDICAL SUMMARY RPT | Continuity of Care Document ---
Author Organization [facility] Address [address] [place] [id number] Phone Problems date description facility 2024-07-24 13:59 Encounter for immunization [facility] 2024-07-24 14:22 Hypothyroidism, unspecified [facility] 2024-07-24 14:22 Essential (primary) [facility]ensio n [facility]-24 14:23 Hypothyroidism, unspecified [facility] 2024-07-24 14:23 Essential (primary) hypertensio n [facility] 2024-07-24 14:58 Hypothyroidism, unspecified [facility] 2024-07-24 14:58 Essential (primary) [facility]ensio [facility] 2024-07-24 14:58 Encounter for immunization [facility] 2024-07-25 00:04 Hypothyroidism, unspecified [facility] 2024-07-25 00:04 Essential (primary) [facility]ensio [facility] 2024-07-29 08:13 Essential (primary) [facility]ensio [facility] 2024-08-06 12:03 Unspecified pre-exis ting hypertension complicating , unspecified trimester [facility] 2024-08-06 12:07 Unspecified pre-exis ting hypertension complicating , unspecified trimester [facility] 2024-08-07 07:05 Unspecified pre-exis ting hypertension complicating , unspecified trimester [facility] 2024-08-07 09:00 Unspecified pre-exis ting hypertension complicating , unspecified trimester [facility] 2024-08-07 09:01 Unspecified pre-exis ting hypertension complicating , unspecified trimester [facility] 2024-08-12 08:11 Unspecified pre-exis ting hypertension complicating , unspecified trimester [facility] 2024-08-12 09:30 Unspecified pre-exis ting hypertension complicating , unspecified [facility] 2024-08-12 09:59 Unspecified pre-exis ting hypertension complicating , unspecified trimester [facility] 2024-08-12 10:37 Unspecified pre-exis ting hypertension complicating , unspecified trimester [facility] 2024-08-13 00:02 Unspecified pre-exis ting hypertension complicating , unspecified trimester [facility] 2024-08-14 08:56 Unspecified pre-exis ting hypertension complicating , third trimester [facility] 2024-08-20 11:47 Encounter for screeni ng for Streptococcus B [facility] 2024-08-20 11:49 Encounter for screeni ng for Streptococcus B [facility] 2024-08-20 12:44 Unspecified pre-exis ting hypertension complicating , unspecified trimester [facility] 2024-08-20 12:44 Encounter for screeni ng for Streptococcus B [facility] 2024-08-21 00:03 Encounter for screeni ng for Streptococcus B [facility] 2024-08-21 10:15 Encounter for screeni ng for Streptococcus B [facility] 2024-08-21 11:42 Unspecified pre-exis ting hypertension complicating , unspecified trimester [facility] 2024-08-21 11:42 Encounter for screeni ng for Streptococcus B [facility] 2024-08-21 11:43 Other specified preg jackson related conditions, second trimester [facility] Results/Labs test date facility value unit notes Result panel 1 PROTEIN/CREATININE RATIO,URINE 2024-07-24 13:51 [facility] 0.1 (missing) (missing) CREATININE,URINE 2024-07-24 13:51 [facility] 80.4 mg/dl As of November 2022 testing method has changed, this may include reference ranges. TOTAL PROTEIN,URINE TIMED 2024-07-24 13:51 [facility] 9 mg/dl As of November 2022 testing method has changed, this may include reference ranges. Result panel 2 BILIRUBIN,TOTAL 2024-07-24 14:29 [email or web address] 0.3 mg /dl As of November 2022 testing method has changed, this may include reference ranges. CREATININE 2024-07-24 14:29 [email or web address] 0.6 mg/dl As of November 2022 testing method has changed, this may include reference ranges. ALBUMIN/GLOBULIN RATIO 2024-07-24 14:29 [facility] 1.3 (missing) (missing) THYROID STIMULATING HORMONE 2024-07-24 14:29 [facility] 1.97 uiu/ml (missing) CHLORIDE 2024-07-24 14:29 [email or web address] 105 mmol/l As of November 2022 testing method has changed, this may include reference ranges. GFR - MDRD 2024-07-24 14:29 [facility] 117 (daniella ferrell) Social History date description facility
[2024-09-10] MEDS ORDERED: SODIUM CHLORIDE FLUSH 0.9% 10 ML SYRINGE IVP SCH (09:00)
[2024-09-10] MEDS: miSOPROStoL 100 MCG TABLET BC SCH (09:10)
[2024-09-10 09:15] LABS: BASOPHILS % (AUTO) 0.4 %; HCT - HEMATOCRIT 35.7 % (37.0-47.0); HGB - HEMOGLOBIN 11.4 g/dL (12.0-16.0); LYMPHOCYTES # (AUTO) 2.6 10^3/uL (1.5-3.5); LYMPHOCYTES % (AUTO) 27.4 %; MEAN CORPUSCULAR HEMOGLOBIN 26.6 pg (27.0-31.0); MEAN CORPUSCULAR HGB CONC 31.9 g/dL (32.0-36.0); MEAN CORPUSCULAR VOLUME 83.2 fL (81.0-99.0); MEAN PLATELET VOLUME 10.6 fL (7.9-10.8); MONOCYTES # (AUTO) 0.6 10^3/uL (0.0-1.0); MONOCYTES % (AUTO) 6.2 %; NEUTROPHILS # (AUTO) 6.2 10^3/uL (1.5-6.6); NEUTROPHILS % (AUTO) 65.3 %; PLT - PLATELET COUNT 214 10^3/uL (130-450); RED BLOOD COUNT 4.29 10^6/uL (4.20-5.40); RED CELL DISTRIBUTION WIDTH 14.3 % (12.0-15.0); WHITE BLOOD COUNT 9.5 x10^3/uL (4.8-10.8)
[2024-09-10 09:35] LABS: ALBUMIN 3.4 g/dL (3.2-5.5); ALBUMIN/GLOBULIN RATIO 1.3 (1.0-2.2); BILIRUBIN,TOTAL 0.3 mg/dL (0.2-1.0); CALCIUM 8.6 mg/dL (8.5-10.3); CREATININE 0.5 mg/dL (0.6-1.3); POTASSIUM 3.5 mmol/L (3.5-4.5)
[2024-09-10 09:39] LABS: CREATININE,URINE 162.7 mg/dL; PROTEIN/CREATININE RATIO,URINE 0.1 (<=0.2)
--- NOTE | 2024-09-10 14:18 | PHARMACY PROGRESS NOTE ---
Best Possible Medication History Admit Date and Time: 09/10/24 0813 Home Medications Medication Instructions Recorded Confirmed Type levothyroxine 112 mcg tablet 112 mcg PO QDAC 09/10/24 09/10/24 History vit 168-iron 27 mg-folic 1 cap PO DAILY 09/10/24 09/10/24 History acid 800 mcg-omega3 235 mg capsule (One-A-Day -1) Processed by: Nursing (confirmed medications with RN who had already talked to the patient) Medications reviewed in ED?: No Medication History completed: Yes Patient Interview: Completed Secondary Source(s): Insurance records [facility] Statement: As the person ultimately responsible for medication therapy, providers are able to order a medication from an existing home medication list in [facility] via the "Reconcile Routine" prior to Confirmation of that medication by customer support consultant. Such practice is discouraged except when the physician, in their clinical judgment, deems that a medical need exists for a medication without regard to previous use.
--- NOTE | 2024-09-10 17:44 | PROVIDER PROGRESS NOTE ---
Labor Progress Note Labor Progress Note Labor Progress Note/Additional Text: S: Feeling some of the contractions but overall coping well. She is open to her partner catching the baby. O: FHR baseline 150s, moderate variability, + accels, no decels Contractions palpate moderate every 4-6 minutes with soft resting tone SVE 5/70/-2, vertex. AROM occurred for a small amount of clear fluid A: 34yo @ 39.0wks gestation Chronic HTN FHR Category I GBS neg P: Expectant management x 2 hours, then consider initiation of pitocin for induction of labor if contractions have not increased in frequency and intensity. Continuous monitoring. Epidural per maternal request. Anticipate .
[2024-09-10] MEDS ORDERED: ROPIVACAINE 0.2% 200 MG/100 ML BAG EP ONE (20:24)
[2024-09-10] MEDS ORDERED: LIDOCAINE 2%-EPI 1:100000 20 ML MDV ONE (20:24)
[2024-09-10] MEDS: LACTATED RINGERS 1,000 ML IV PRN (21:06)
[2024-09-10] MEDS ORDERED: fentaNYL 100 MCG/2 ML VIAL ONE (21:27)
[2024-09-10] MEDS ORDERED: SODIUM CHLORIDE 0.9% 10 ML VIAL ONE (21:27)
[2024-09-10] MEDS ORDERED: LIDOCAINE-PF 2% 10 ML AMP SUBQ ONE (21:28)
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
[2024-09-10] MEDS ORDERED: NALOXONE 0.4 MG/ML VIAL IVP PRN (21:50)
[2024-09-10] MEDS ORDERED: ONDANSETRON 4 MG/2 ML VIAL IVP PRN (21:50)
[2024-09-10] MEDS ORDERED: ePHEDrine 50 MG/ML VIAL IVP PRN (21:50)
[2024-09-10] MEDS ORDERED: ROPIVACAINE 0.2% 200 MG/100 ML BAG EP PRN (21:50)
[2024-09-10] MEDS ORDERED: HYDROCORTISONE 1% CREAM 28 GM TUBE TOP PRN (23:05)
[2024-09-10] MEDS ORDERED: WITCH HAZEL/GLYCERIN 1 PAD TOP PRN (23:05)
[2024-09-10] MEDS ORDERED: SIMETHICONE CHEW 80 MG TABLET PO PRN (23:05)
--- NOTE | 2024-09-10 23:05 | DELIVERY NOTE ---
Delivery Note Delivery Comments (Free Text/Narrative) Delivery Comments (Free Text/Narrative): Labor: This 34yo @ 39.0wks gestation by LMP presented to [facility] for medical induction of labor secondary to chronic hypertension. Cervix was 2/80/-2 and vertex. She received 2 doses of 25mcg BC misoprostol for pre-induction cervical ripening followed by AROM at 1722 which was noted to be a small amount of clear fluid. FHR demonstrated Category I pattern throughout labor. Normal labor course. Epidural placed per maternal request. She progressed to c/c/0 at 2204. : Normal SVB of viable male infant on 09/10/2024 @ 2238 in EWELINA position with compound right arm. No nuchal cord. The was placed on maternal abdomen, stimulated, dried, and placed skin to skin. 's were 9/9 at 1 and 5 min respectively. Pitocin administered via IV for hemostasis. The umbilical cord was allowed to stop pulsating at which time it was doubly clamped by CNM and cut by FOB. Cord blood was obtained. 3VC. Fundal massage and gentle cord traction applied for active management of the third stage. Placenta delivered sp ontaneously and intact at 2248. EBL 450mL. Fourth stage: Uterine fundus firm and there is no excessive bleeding. The perineum, vagina, and cervix were inspected and found to be intact. initiated. Family bonding well. Both mother and baby were left in stable condition.
[2024-09-11] MEDS: ACETAMINOPHEN 500 MG TABLET PO PRN (01:27)
[2024-09-11] MEDS: IBUPROFEN 800 MG TABLET PO PRN (01:28)
[2024-09-11 02:38] VITALS: O2SAT 98
[2024-09-11] MEDS ORDERED: LEVOTHYROXINE 112 MCG TABLET PO SCH (07:00)
[2024-09-11] MEDS: DOCUSATE SODIUM 100 MG CAPSULE PO SCH (09:42)
--- NOTE | 2024-09-11 13:56 | PROVIDER PROGRESS NOTE ---
Current Medications Current Medications Current Medications: Current Medications Generic Name Dose Route Start Last Admin Trade Name Irving PRN Reason Stop Dose Admin Acetaminophen 1,000 mg 09/10/24 23:05 09/11/24 09:42 Acetaminophen 500 Mg Tablet PO 1,000 mg Q8HR PRN Administration Mild Pain or Fever>38C(100.4F) Carboprost Tromethamine 250 mcg 09/10/24 08:13 Carboprost Tromethamine 250 Mcg/Ml Vial IM 09/15/24 08:13 Q15M PRN Step 4: Hemorrhage protocol Docusate Sodium 100 mg 09/11/24 09:00 09/11/24 09:42 Docusate Sodium 100 Mg Capsule PO 100 mg BID GERONIMO Administration Ephedrine Sulfate 5 mg 09/10/24 21:50 Ephedrine 50 Mg/Ml Vial IVP Q5M PRN For SBP<100;give until SBP>100 Hydralazine HCl 5 - 20 mg 09/10/24 08:13 Hydralazine Inj 20 Mg/Ml Vial IVP Q20M PRN SBP >160 or DBP >110 Protocol Hydralazine HCl 10 mg 09/10/24 08:13 Hydralazine Inj 20 Mg/Ml Vial IVP 09/15/24 08:13 .ONCE PRN Step 9 of Labetalol protocol Protocol Hydrocortisone 1 applic 09/10/24 23:05 Hydrocortisone 1% Cream 28 Gm Tube TOP QID PRN PERINEAL REPAIR Lactated Ringer's 1,000 mls @ 100 mls/hr 09/10/24 08:13 09/10/24 21:06 Lr IV 100 mls/hr .Q10H PRN Administration Save for active labor Oxytocin/Sodium Chloride 500 mls @ 999 mls/hr 09/10/24 08:13 Pitocin/Sodium Chloride IV 09/15/24 08:13 PRN PRN POST- HEMORR PREVENTION Protocol 999 MILLIUNIT/MIN Tranexamic Acid 1,000 mg in 100 mls @ 600 mls/hr 09/10/24 08:13 Tranexamic 1,000 Mg/100ml-Nacl IV 09/15/24 08:13 .ONCE PRN EBL >1200mL and within 3hr Lactated Ringer's 1,000 mls @ 999 mls/hr 09/10/24 08:13 Lr IV PRN PRN distress Oxytocin/Sodium Chloride 500 mls @ 999 mls/hr 09/10/24 23:05 Pitocin/Sodium Chloride IV PRN PRN POST- HEMORR PREVENTION Protocol 999 MILLIUNIT/MIN Ibuprofen 800 mg 09/10/24 23:05 09/11/24 09:42 Ibuprofen 800 Mg Tablet PO 800 mg Q8HR PRN Administration Moderate Pain (Level 4-6) Labetalol HCl 20 - 80 mg 09/10/24 08:13 Labetalol 20 Mg/4 Ml Syringe IVP Q10M PRN SBP >160 or DBP >110 Protocol Labetalol HCl 20 mg 09/10/24 08:13 Labetalol 20 Mg/4 Ml Syringe IVP 09/15/24 08:13 .ONCE PRN Step 9 of nifedipine protocol Protocol Labetalol HCl 40 mg 09/10/24 08:13 Labetalol 20 Mg/4 Ml Syringe IVP 09/15/24 08:13 .ONCE PRN Step 9 of hydrALAZine protocol Protocol Levothyroxine Sodium 112 mcg 09/11/24 07:00 Levothyroxine 112 Mcg Tablet PO QDAC GERONIMO Lidocaine HCl 20 ml 09/10/24 08:13 Lidocaine 1% 20 Ml Mdv ID 09/15/24 08:13 .ONCE PRN PERINEAL REPAIR Misoprostol 800 mcg 09/10/24 08:13 Misoprostol 200 Mcg Tablet BC 09/15/24 08:13 .ONCE PRN Step 3: Hemorrhage protocol Naloxone HCl 0.1 mg 09/10/24 21:50 Naloxone 0.4 Mg/Ml Vial IVP Q2M PRN RR<8 Nifedipine 10 - 20 mg 09/10/24 08:13 Nifedipine 10 Mg Capsule PO Q20M PRN SBP >160 or DBP >110 Protocol Ondansetron HCl 4 mg 09/10/24 21:50 Ondansetron 4 Mg/2 Ml Vial IVP Q6HR PRN Nausea / Vomiting Oxytocin 10 unit 09/10/24 08:13 Oxytocin 10 Unit/Ml Vial IM 09/15/24 08:13 .ONCE PRN Step one: If no IV access Simethicone 80 mg 09/10/24 23:05 Simethicone Chew 80 Mg Tablet PO TID PRN Gas Sodium Chloride 10 ml 09/10/24 09:00 Sodium Chloride Flush 0.9% 10 Ml Syringe IVP 0100,0900,1700 GERONIMO Sodium Chloride 10 ml 09/10/24 08:13 Sodium Chloride Flush 0.9% 10 Ml Syringe IVP PRN PRN NEEDED PER PROVIDER ORDERS Witch Teresa/Glycerin 1 pad 09/10/24 23:05 Witch Teresa/Glycerin 1 Pad TOP PRN PRN PERINEAL REPAIR Objective Vital Signs/Intake & Output Vital Signs: Vital Signs x48h Temp Pulse Resp BP 09/11/24 09:54 36.6 C 76 16 139/79 H Intake & Output: Intake & Output 09/08/24 09/09/24 09/10/24 09/11/24 23:59 23:59 23:59 23:59 Intake Total 1000 / 1000 Output Total 100 / 100 Balance 900 / 900 Lab Results 09/10/24 08:55 09/10/24 08:55
[2024-09-11 18:08] VITALS: BP 129/77; TEMP 98.1
--- NOTE | 2024-09-11 19:50 | Labor Flowsheet ---
Labor Flowsheet Datetime Report Generated by CPN: 09/11/2024 19:50 Datetime: 09/11/2024 18:00 VITAL SIGNS NBP Sys/María/Mean (mmHg): 129 : 77 : 87 Pulse: 99 Datetime: 09/11/2024 13:59 SpO2 (%): 100 Datetime: 09/11/2024 00:01 PAIN Pain Scale: 0 Datetime: 09/10/2024 23:26 Respirations: 16 Datetime: 09/10/2024 23:05 Temperature Route: Tympanic Datetime: 09/10/2024 22:48 Stage of : Recovery Temperature (C): 37.0 Datetime: 09/10/2024 22:34 FHR Baseline Rate : 140 COMMUNICATION Communication: RN at Bedside; RN Reviewed Strip; Provider at Bedside Datetime: 09/10/2024 22:32 Accelerations: 15X15 Datetime: 09/10/2024 22:26 Frequency (min): 2-3 Duration (sec): 60 Contraction Comments: pusahing effectively FHR Baseline Changes: No Baseline Change Variability: Moderate 6-25 bpm Decelerations: None Datetime: 09/10/2024 22:07 Quality: Strong Pattern: Normal: <= 5 Contractions in 10 Minutes Resting Tone (Palpate): Relaxed Category: Category I Datetime: 09/10/2024 22:04 VAGINAL EXAM Dilatation (cm): 10.0 Exam by: mk Cervix, Consistency: Soft Vaginal Exam Comments: a tommy notified and at bs Datetime: 09/10/2024 21:57 Communication Comments: dioziness resolving Datetime: 09/10/2024 21:45 UTERINE ACTIVITY Monitor Mode: External Monitor Interventions for UA: [place] Adjusted Datetime: 09/10/2024 21:39 Strip Reviewed by: mk Datetime: 09/10/2024 21:30 Anesthesia Comments: A Yonatan at bs Datetime: 09/10/2024 21:29 Provider Notified (Name): A Tony Notification Reason: Status Update; Labor Status; Pain Datetime: 09/10/2024 21:26 Effacement (%): 100 Station: -2 Vaginal Bleeding: None Cervix, Position: Midposition Datetime: 09/10/2024 21:20 Pain Presence: Intermittent Pain Location: Abdomen Pain Assessment Comments: continued pain on r side. A Yonatan notified Comfort Measures: Breathing/Relaxation Datetime: 09/10/2024 21:06 Anesthesia Level Check: T11 Datetime: 09/10/2024 20:52 MATERNAL ASSESSMENT Level of Consciousness: Alert DTR's/Clonus: DTRs 1+; DTRs 2+ Headache: Denies Nausea/Vomiting: Denies RUQ Epigastric Pain: Denies Datetime: 09/10/2024 20:47 Epidural Procedure Other: Pump Started Datetime: 09/10/2024 20:42 Epidural Procedure: Loading Dose Datetime: 09/10/2024 20:36 Membranes Ruptured Date/Time: 09/10/2024 17:22 Membranes Rupture Method: Artificial Datetime: 09/10/2024 20:32 PROCEDURE TIME OUT Procedure Verify: Correct Patient Identity; Correct Side and Site are Marked; Accurate Procedure Co nsent Form; Agreement on Procedure to be Done; Correct Patient Position; Relevant Images and Results are Properly Labeled and Displayed; Addressed Need to Administer Antibiotics or Fluids for Irrigation ; Safety Precautions Based on Patient History or Medication Use ANESTHESIA Epidural Positioning: Sitting Datetime: 09/10/2024 20:05 Pain Type: Cramping Datetime: 09/10/2024 19:36 ASSESSMENT A Monitor Mode: External US Amniotic Fluid Color: Clear Amniotic Fluid Amount: Scant Amniotic Fluid Odor: Normal Datetime: 09/10/2024 15:53 Monitor Interventions for FHR: Ultrasound Adjusted Datetime: 09/10/2024 15:42 PATIENT CARE Patient Position/Activity: Birthing Ball Datetime: 09/10/2024 13:15 MEDICATIONS Cervical Ripening Agents: Cytotec @ Datetime: 09/10/2024 13:10 Pain Coping: Talking Through Contractions Datetime: 09/10/2024 09:06 I/O Interventions: Up to BR
--- NOTE | 2024-09-12 18:41 | Discharge Summary ---
Discharge Summary HPI History of Present Illness: Admit: 09/10/2024 Discharge: 09/11/2024 Diagnosis on admission: 34 yo @ 39+0 weeks gestation by 8+6 wk U/S Medical induction of labor for chronic hypertension FHR 140 Cat I GBS NEG Diagnosis on Discharge 34 yo PPD#1 BP WNL S/P , doing well Physical exam: Normocephalic, atraumatic No increased work of breathing Normal uterine involution, FF below umbilicus Small rubra bleeding Minimal perineal discomfort. Bilateral LE's no edema Mood is good. Brief History: This 34yo @ 39.0wks gestation by LMP presented to [facility] for medical induction of labor secondary to chronic hypertension. Cervix was 2/80/-2 and vertex. She received 2 doses of 25mcg BC misoprostol for pre- induction cervical ripening followed by AROM at 1722 which was noted to be a small amount of clear fluid. FHR demonstrated Category I pattern throughout labor. Normal labor course. Epidural placed per maternal request. She progressed to c/c/0 at 2204. : Normal SVB of viable male infant on 09/10/2024 @ 2238 in EWELINA position with compound right arm. No nuchal cord. The was placed on maternal abdomen, stimulated, dried, and placed skin to skin. 's were 9/9 at 1 and 5 min respectively. Pitocin administered via IV for hemostasis. The umbilical cord was allowed to stop pulsating at which time it was doubly clamped by CNM and cut by FOB. Cord blood was obtained. 3VC. Fundal massage and gentle cord traction applied for active management of the third stage. Placenta delivered spontaneously and intact at 2248. EBL 450mL. Fourth stage: Uterine fundus firm and there is no excessive bleeding. The perineum, vagina, and cervix were inspected and found to be intact. initiated. Family bonding well. Both mother and baby were left in stable condition She has been doing well in her course. She is ambulating and tolerating a regular diet. She is urinating without difficulty and her lochia is normal. Her pain is well controlled without narcotic management. She will be discharged to home today on day 1 and encouraged IBU, tylenol and stool softeners PRN. She intends to follow up with [facility] in 1 week for telehealth. Telehealth appointment scheduled for 09/16/2024 @ 1700. She has been given precautions to call if she has any new or worsening sx such as fevers, chills, abdominal pain, increasing bleeding, or foul smelling vaginal lochia. preeclamptic precautions reviewed as well. ALLERGIES Allergies Allergy/AdvReac Type Severity Reaction Status Date / Time No Known Drug Allergies Allergy Verified 08/20/24 11:49 MEDICATIONS Ambulatory Orders Medication Instructions Recorded Confirmed levothyroxine 112 mcg tablet 112 mcg PO QDAC 09/10/24 09/10/24 vit 168-iron 27 mg-folic 1 cap PO DAILY 09/10/24 09/10/24 acid 800 mcg-omega3 235 mg capsule (One-A-Day -1) PHYSICAL EXAM AT DISCHARGE Vital Signs: Vital Signs x48h Temp Pulse Resp BP 09/11/24 09:54 36.6 C 76 16 139/79 H LABS 09/10/24 08:55 09/10/24 08:55 Discharge Plan Discharge Patient Disposition: 01 Home, Self Care Medically Cleared Date:: 09/11/24 Prescriptions: Continued One-A-Day -1 27 mg iron- 800 mcg-235 mg capsule 1 cap PO DAILY levothyroxine 112 mcg tablet 112 mcg PO QDAC Patient Comments: take 1 capsule by mouth once daily Print Language: Thai Patient Instructions: Breastfeed Holds, Anatomy, , Benefits, Self Care
== END 2024-09-11 19:40 | disposition home or self-care (01) | DRG 807 ==
LOC: WFO 07:50 → FBP 07:56
PROVIDERS: ADMIT Nurse Practitioner; ATTEND Nurse Practitioner Obstetrics & Gynecology
DX: O16.4 Unspecified maternal hypertension, complicating childbirth; Z37.0 Single live birth; Z3A.39 39 weeks gestation of pregnancy; O32.6XX0 Maternal care for compound presentation, not applicable or unspecified; E03.9 Hypothyroidism, unspecified; O99.284 Endocrine, nutritional and metabolic diseases complicating childbirth